=== PATIENT | male | born 1950 | race African-American/Black ===

== ENCOUNTER 2017-11-15 19:35 | Inpatient (IN) | payer SELFPAY ==
[~2017-11-15] VITALS: Ht 175.3 cm; Wt 57.6 kg
[2017-11-15] MEDS ORDERED: SODIUM CHLORIDE 0.9% 1,000 ML IV ONE (20:49)
[2017-11-15] MEDS ORDERED: LORAZEPAM 2MG/ML CPJ ONE (20:56)
[2017-11-15] MEDS ORDERED: LORAZEPAM 2MG/ML CPJ IV ONE ×2 (21:00→23:30)
[2017-11-15 21:58] LABS: CLARITY URINE CLEAR (CLEAR); COLOR URINE YELLOW (YELLOW); KETONES URINE NEGATIVE (NEGATIVE); LEUKOCYTE ESTERASE URINE 2+ (NEGATIVE); NITRITE URINE POSITIVE (NEGATIVE); OCCULT BLOOD URINE NEGATIVE (NEGATIVE); PROTEIN URINE NEGATIVE (NEGATIVE); SPECIFIC GRAVITY URINE 1.012 (1.005-1.030); UROBILINOGEN URINE 0.2 E.U./dL (0.2-1.0)
[2017-11-15 22:09] LABS: *AMPHETAMINES SCREEN URINE NEGATIVE (NEGATIVE); *BARBITURATES SCREEN URINE NEGATIVE (NEGATIVE); *BENZODIAZEPINES SCREEN URINE NEGATIVE (NEGATIVE); *COCAINE SCREEN URINE NEGATIVE (NEGATIVE); CANNABINOID URINE SCREEN PRESUMTIVE POSITIVE (NEGATIVE); METHADONE URINE SCREEN NEGATIVE (NEGATIVE); OPIATES URINE SCREEN PRESUMTIVE POSITIVE (NEGATIVE); PHENCYCLIDINE URINE SCREEN NEGATIVE (NEGATIVE)
[2017-11-15 22:40] LABS: BASOPHILS % 0.8 % (0.0-2.0); EOSINOPHILS % 1.1 % (0.0-5.0); HEMATOCRIT. 33.2 % (42.0-52.0); HEMOGLOBIN. 11.3 g/dL (14.0-18.0); LYMPHOCYTES % 18.5 % (20.0-50.0); MEAN CORPUSCULAR HEMOGLOBIN 30.5 pg (28.0-32.0); MEAN CORPUSCULAR VOLUME 89.4 fL (80.0-94.0); MEAN PLATELET VOLUME 6.6 fl (7.4-10.4); MONOCYTES % 5.3 % (2.0-8.0); NEUTROPHILS % 74.3 % (40.0-76.0); PLATELET 399 x1000/uL (130-400); RED BLOOD CELL COUNT 3.71 mill/uL (4.7-6.1); RED CELL DISTRIBUTION WIDTH 14.9 % (11.6-14.6)
[2017-11-15 22:47] LABS: PROTHROMBIN TIME 10.8 sec (9.4-11.6)
[2017-11-15 22:50] LABS: CHLORIDE 107 mEq/L (98-107); ETHANOL BLOOD < 10 mg/dL
[2017-11-15 22:52] LABS: AMMONIA 10 uMol/L (<32)
[2017-11-15 22:56] LABS: CREATINE KINASE 233 IU/L (39-308)
[2017-11-15] MEDS ORDERED: PIPERACILLIN/TAZ 3.375G PREMIX 50 ML IV ONE (23:30)
[2017-11-16] MEDS: LORAZEPAM 2MG/ML CPJ IV PRN ×2 (03:00→10:58)
[2017-11-16 03:30] VITALS: BP 167/94
[2017-11-16 04:24] VITALS: BP 167/94
[2017-11-16] MEDS ORDERED: ONDANSETRON HCL 4MG/2ML VIAL IV PRN (04:26)
[2017-11-16] MEDS ORDERED: ACETAMINOPHEN 325MG TABLET PO PRN (04:26)
[2017-11-16] MEDS ORDERED: CLONIDINE 0.1MG TABLET PO PRN (04:27)
[2017-11-16] MEDS ORDERED: MAGNESIUM/ALUMINUM HYDROXIDE/SIMETHICONE 30ML UDC PO PRN (04:27)
[2017-11-16] MEDS ORDERED: DIPHENHYDRAMINE 50MG/ML VIAL IV PRN (04:28)
[2017-11-16] MEDS ORDERED: DEXT 5%/0.45% NACL KCL 20MEQ/L 1,000 ML IV SCH ×2 (05:00→08:00)
[2017-11-16] MEDS ORDERED: FOLIC ACID 1 MG, THIAMINE HCL 100 MG, MVI, ADULT NO.1 10 ML in DEXTROSE 5% WATER 1,000 ML IV SCH ×4 (05:00)
[2017-11-16] MEDS: SODIUM CHLORIDE 0.9% INJ 3ML FLUSH IVF SCH ×3 (06:15→20:36)
[2017-11-16 16:00] VITALS: BP 160/97
[2017-11-16 20:00] VITALS: BP 173/78
[2017-11-16] MEDS ORDERED: LEVOFLOXACIN 500MG PREMIX 100 ML IV SCH (20:00)
[2017-11-17 02:29] VITALS: BP 155/88
[2017-11-17 04:00] VITALS: BP 162/84
[2017-11-17] MEDS: SODIUM CHLORIDE 0.9% INJ 3ML FLUSH IVF SCH (05:45)
[2017-11-17 07:26] LABS: BASOPHILS % 0.6 % (0.0-2.0); EOSINOPHILS % 1.1 % (0.0-5.0); HEMATOCRIT. 35.4 % (42.0-52.0); HEMOGLOBIN. 12.1 g/dL (14.0-18.0); LYMPHOCYTES % 14.3 % (20.0-50.0); MEAN CORPUSCULAR HEMOGLOBIN 30.6 pg (28.0-32.0); MEAN CORPUSCULAR VOLUME 89.3 fL (80.0-94.0); MEAN PLATELET VOLUME 7.2 fl (7.4-10.4); PLATELET 372 x1000/uL (130-400); RED BLOOD CELL COUNT 3.97 mill/uL (4.7-6.1); RED CELL DISTRIBUTION WIDTH 14.7 % (11.6-14.6)
[2017-11-17 07:31] LABS: CHLORIDE 102 mEq/L (98-107)
[2017-11-17] MEDS ORDERED: LEVOFLOXACIN 500MG TABLET PO SCH (11:00)
== END 2017-11-17 09:00 | disposition left against medical advice (07) | DRG 463 ==
LOC: ER 19:45 → EDBEDREQTM 11-16 00:45 → EDBEDREQDT 11-16 00:45 → EDBEDREQ 11-16 00:45 → ENRESERV 11-16 02:18 → UNDOADMIN 11-16 04:09 → 5WST 11-16 04:09
PROVIDERS: ADMIT Internal Medicine; ATTEND Internal Medicine
DX: N39.0 Urinary tract infection, site not specified (principal); G93.41 Metabolic encephalopathy; E44.1 Mild protein-calorie malnutrition; R56.9 Unspecified convulsions; F99 Mental disorder, not otherwise specified; Z53.21 Procedure and treatment not carried out due to patient leaving prior to being seen by health care provider; Z72.89 Other problems related to lifestyle; Z68.1 Body mass index [BMI] 19.9 or less, adult
CPT/HCPCS: 36415; 70450; 71045; 80053; 80305; 81003; 82140; 82550; 82962; 83605; 83735; 84484; 85025; 85610; 87040; 87077; 87086; 87186; 93005; 96361; 96365; 96366; 96375; 96376; 99291; G0482; J1200; J1956; J2060; J2543; J3411; J3490; J7030; J7070; A4315